=== PATIENT | male | born 1965 | race Caucasian/White ===

== ENCOUNTER 2016-11-13 17:51 | Emergency (ER) | payer BC, OTHER ==
[2016-11-13 18:15] VITALS: BMI 34.9
[2016-11-13 19:21] LABS: URINE APPEARANCE CLEAR; URINE BILIRUBIN NEGATIVE (NEGATIVE); URINE COLOR STRAW; URINE GLUCOSE (UA) NEGATIVE (NEGATIVE); URINE KETONE 1+ (NEGATIVE); URINE LEUK ESTERASE NEGATIVE (NEGATIVE); URINE NITRITE NEGATIVE (NEGATIVE); URINE PROTEIN NEGATIVE (NEGATIVE); URINE UROBILINOGEN NEGATIVE E.U./dl (0.2-1.0)
[2016-11-13 19:22] LABS: URINE BLOOD 1+ (NEGATIVE)
[2016-11-13 19:23] LABS: URINE RBC <1 /hpf (0-3); URINE WBC <1 /hpf (3-5)
[2016-11-13 19:36] LABS: BASOPHIL 0.6 % (0-2.0); MCH 27.9 pg (25.7-33.7); MCHC 33.3 g/dl (32.0-35.9); MEAN CELL VOLUME 83.9 fl (80-96); MEAN PLT VOLUME 8.5 fl (7.5-11.1); NEUTROPHILS 80.9 % (42.8-82.8); PLATELET COUNT 203 K/MM3 (134-434); RDW 14.1 % (11.9-15.9); WHITE BLOOD COUNT 9.9 K/mm3 (4.0-10.0)
[2016-11-13 19:46] LABS: ALBUMIN 3.9 g/dl (3.4-5.0); ANION GAP 12 (8-16); BILIRUBIN,TOTAL 0.6 mg/dL (0.2-1.0); CALCIUM 8.5 mg/dL (8.5-10.1); CO2 23 mmol/L (21-32); COCKROFT - GAULT 118.08; CREATININE 1.1 mg/dL (0.7-1.3); GLUCOSE,RANDOM 95 mg/dL (74-106); SGOT/AST 31 U/L (15-37); SGPT/ALT 36 U/L (12-78); TOT PROT 7.2 g/dl (6.4-8.2)
[2016-11-13 19:47] LABS: ALK PHOS 56 U/L (45-117)
[2016-11-13] MEDS ORDERED: ACETAMINOPHEN 1000 MG/100 ML VIAL (NON FORMULARY) IVPB ONE (19:49)
[2016-11-13] MEDS ORDERED: MAG HYDROX/AL HYDROX/SIMETH 30 ML UNIT-DOSE CUP PO ONE (19:49)
[2016-11-13] MEDS ORDERED: FAMOTIDINE 20 MG/50 ML IVPB 50 ML IVPB ONE ×2 (19:49→20:12)
[2016-11-13] MEDS ORDERED: ONDANSETRON 4 MG/2 ML VIAL IVPB ONE (19:49)
[2016-11-13] MEDS ORDERED: SODIUM CHLORIDE 1,000 ML IV STA (19:49)
[2016-11-13] MEDS ORDERED: ONDANSETRON 4 MG/2 ML VIAL ONE (20:12)
[2016-11-13] MEDS ORDERED: ACETAMINOPHEN INJECTION 100 ML IVPB ONE (20:12)
[2016-11-13] MEDS ORDERED: MAG HYDROX/AL HYDROX/SIMETH 30 ML UNIT-DOSE CUP ONE (20:12)
--- NOTE | 2016-11-13 21:44 | PDOC ---
History of Present Illness - General History Source: Patient Exam Limitations: No Limitations - History of Present Illness Initial Comments: 11/13/16 22:20 The patient is a 51 year old male, with no significant past medical history, who presents to the emergency department with nausea, vomiting, diarrhea and diffuse abdominal pain for the past 3 days. The patient reports multiple episodes of vomiting and diarrhea since then. Two days ago, the patient visited an urgent care for his symptoms and was prescribed Ciprofloxacin, which he states he has been taking. The patient reports that despite taking the Ciprofloxacin as directed, his symptoms have been persistent so he decided to visit the ED for further evaluation. The patient denies chest pain or shortness of breath. The patient denies fever, chills, cough or dysuria. The patient denies any sick contacts or recent travel. Allergies: None reported. Past Surgical History: None reported. Social History: Non smoker. Denies alcohol or drug use. PCP: Dr. Bland <Alyssa Zapata - Last Filed: 11/13/16 22:26> - General History Source: Patient Exam Limitations: No Limitations <Castro Flores - Last Filed: 11/13/16 22:45> - General Chief Complaint: Pain, Acute Stated Complaint: NAUSEA/DIARRHEA Time Seen by Provider: 11/13/16 19:26 Past History <Alyssa Zapata - Last Filed: 11/13/16 22:26> - Psycho/Social/Smoking Cessation Hx Suicidal Ideation: No Smoking History: Never smoked <Castro Flores - Last Filed: 11/13/16 22:45> - Past Medical History Allergies/Adverse Reactions: Allergies Allergy/AdvReac Type Severity Reaction Status Date / Time No Known Allergies Allergy Verified 11/13/16 18:12 Home Medications: Ambulatory Orders Acetaminophen [Tylenol] 650 mg PO Q4H PRN #20 tablet 11/13/16 Ciprofloxacin [Cipro -] 500 mg PO Q12H #28 tablet 11/13/16 Famotidine [Pepcid] 20 mg PO BID PRN #20 tablet 11/13/16 Mag Hydrox/Al Hydrox/Simeth [Mylanta Suspension -] 30 ml PO Q6H PRN #1 bottle Metronidazole [Flagyl -] 500 mg PO Q8H #42 tablet 11/13/16 Ondansetron HCl [Zofran] 4 mg PO Q6H PRN #15 tablet 11/13/16 Review of Systems - Review of Systems Able to Perform ROS?: Yes Comments:: 11/13/16 22:11 GENERAL/CONSTITUTIONAL: No fever or chills. No weakness. HEAD, EYES, EARS, NOSE AND THROAT: No change in vision. No ear pain or discharge. No sore throat. CARDIOVASCULAR: No chest pain or shortness of breath. RESPIRATORY: No cough, wheezing, or hemoptysis. GASTROINTESTINAL: +Nausea, vomiting, diarrhea, abdominal pain. No constipation. GENITOURINARY: No dysuria, frequency, or change in urination. MUSCULOSKELETAL: No joint or muscle swelling or pain. No neck or back pain. SKIN: No rash. NEUROLOGIC: No headache, vertigo, loss of consciousness, or change in strength/ sensation. ENDOCRINE: No increased thirst. No abnormal weight change. HEMATOLOGIC/LYMPHATIC: No anemia, easy bleeding, or history of blood clots. ALLERGIC/IMMUNOLOGIC: No hives or skin allergy. <Alyssa Zapata - Last Filed: 11/13/16 22:26> *Physical Exam - Vital Signs Last Vital Signs Temp Pulse Resp BP Pulse Ox 99.4 F 91 H 19 150/95 95 11/13/16 18:12 11/13/16 18:12 11/13/16 18:12 11/13/16 18:12 11/13/16 18:12 - Physical Exam Comments: 11/13/16 22:19 GENERAL: Awake, alert, and fully oriented, in no acute distress. HEAD: No signs of trauma. EYES: PERRLA, EOMI, sclera anicteric, conjunctiva clear. ENT: Auricles normal inspection, hearing grossly normal, nares patent, oropharynx clear without exudates. Moist mucosa. NECK: Normal ROM, supple, no lymphadenopathy, JVD, or masses. LUNGS: Breath sounds equal, clear to auscultation bilaterally. No wheezes, and no crackles. HEART: Regular rate and rhythm, normal S1 and S2, no murmurs, rubs or gallops. ABDOMEN: Diffuse abdominal tenderness to palpation. Soft, normoactive bowel sounds. No guarding, no rebound. No masses. EXTREMITIES: Normal range of motion, no edema. No clubbing or cyanosis. No cords , erythema, or tenderness. NEUROLOGICAL: Cranial nerves II through XII intact. Normal speech, normal gait. SKIN: Warm, dry, normal turgor, no rashes or lesions noted. <Alyssa Zapata - Last Filed: 11/13/16 22:26> - Vital Signs Last Vital Signs Temp Pulse Resp BP Pulse Ox 99.4 F 91 H 19 150/95 95 11/13/16 18:12 11/13/16 18:12 11/13/16 18:12 11/13/16 18:12 11/13/16 18:12 <Castro Flores - Last Filed: 11/13/16 22:45> Heart Score/ECG Review #1 ECG reviewed & interpreted by me at: 19:45 11/13/16 21:56 NSR 91, no std/monique, TWI III, avF, QTC 425 msec <Castro Flores - Last Filed: 11/13/16 22:45> ED Treatment Course - LABORATORY CBC & Chemistry Diagram: 11/13/16 18:30 11/13/16 18:30 - ADDITIONAL ORDERS Additional order review: Laboratory Results 11/13/16 11/13/16 11/13/16 19:06 18:30 18:30 Sodium 135 L Potassium 4.2 Chloride 100 Carbon Dioxide 23 Anion Gap 12 BUN 13 Creatinine 1.1 Creat Clearance w eGFR > 60 Random Glucose 95 Calcium 8.5 Total Bilirubin 0.6 AST 31 ALT 36 Alkaline Phosphatase 56 Total Protein 7.2 Albumin 3.9 Lipase 84 Urine Color Straw Urine Appearance Clear Urine pH 6.0 Ur Specific [place] 1.005 Urine Protein Negative Urine Glucose (UA) Negative Urine Ketones 1+ H Urine Blood 1+ H Urine Nitrite Negative Urine Bilirubin Negative Urine Urobilinogen Negative Ur Leukocyte Esterase Negative Urine RBC <1 Urine WBC <1 11/13/16 18:30 RBC 5.42 MCV 83.9 MCHC 33.3 RDW 14.1 MPV 8.5 Neutrophils % 80.9 Lymphocytes % 7.5 L Monocytes % 11.0 H Eosinophils % 0.0 Basophils % 0.6 - Medications Given in the ED: ED Medications Discontinued Medications Generic Name Dose Route Start Last Admin Trade Name Freq PRN Reason Stop Dose Admin Acetaminophen 1,000 mg 11/13/16 19:49 11/13/16 20:16 Ofirmev Injection - IVPB 11/13/16 19:50 1,000 mg ONCE ONE Administration Al Hydroxide/Mg Hydroxide 30 ml 11/13/16 19:49 11/13/16 20:16 Mylanta Oral Suspension - PO 11/13/16 19:50 30 ml ONCE ONE Administration Famotidine/Sodium Chloride 50 mls @ 100 mls/hr 11/13/16 19:49 11/13/16 20:16 Pepcid 20 Mg Premixed Ivpb - IVPB 11/13/16 20:18 100 mls/hr ONCE ONE Administration Sodium Chloride 1,000 mls @ 1,000 mls/hr 11/13/16 19:49 11/13/16 20:16 Normal Saline - IV 11/13/16 20:48 1,000 mls/hr ASDIR STA Administration Ondansetron HCl 4 mg 11/13/16 19:49 11/13/16 20:16 Zofran Injection IVPB 11/13/16 19:50 4 mg ONCE ONE Administration <Alyssa Zapata - Last Filed: 11/13/16 22:26> - LABORATORY CBC & Chemistry Diagram: 11/13/16 18:30 11/13/16 18:30 - ADDITIONAL ORDERS Additional order review: Laboratory Results 11/13/16 11/13/16 11/13/16 19:06 18:30 18:30 Sodium 135 L Potassium 4.2 Chloride 100 Carbon Dioxide 23 Anion Gap 12 BUN 13 Creatinine 1.1 Creat Clearance w eGFR > 60 Random Glucose 95 Calcium 8.5 Total Bilirubin 0.6 AST 31 ALT 36 Alkaline Phosphatase 56 Total Protein 7.2 Albumin 3.9 Lipase 84 Urine Color Straw Urine Appearance Clear Urine pH 6.0 Ur Specific [place] 1.005 Urine Protein Negative Urine Glucose (UA) Negative Urine Ketones 1+ H Urine Blood 1+ H Urine Nitrite Negative Urine Bilirubin Negative Urine Urobilinogen Negative Ur Leukocyte Esterase Negative Urine RBC <1 Urine WBC <1 11/13/16 18:30 RBC 5.42 MCV 83.9 MCHC 33.3 RDW 14.1 MPV 8.5 Neutrophils % 80.9 Lymphocytes % 7.5 L Monocytes % 11.0 H Eosinophils % 0.0 Basophils % 0.6 - RADIOLOGY Radiology Studies Ordered: Category Date Time Status ABDOMEN & PELVIS CT WITH CONTR [CT] Stat CT Scan 11/13/16 21:15 Taken - Medications Given in the ED: ED Medications Discontinued Medications Generic Name Dose Route Start Last Admin Trade Name Aguilaq PRN Reason Stop Dose Admin Acetaminophen 1,000 mg 11/13/16 19:49 11/13/16 20:16 Ofirmev Injection - IVPB 11/13/16 19:50 1,000 mg ONCE ONE Administration Al Hydroxide/Mg Hydroxide 30 ml 11/13/16 19:49 11/13/16 20:16 Mylanta Oral Suspension - PO 11/13/16 19:50 30 ml ONCE ONE Administration Famotidine/Sodium Chloride 50 mls @ 100 mls/hr 11/13/16 19:49 11/13/16 20:16 Pepcid 20 Mg Premixed Ivpb - IVPB 11/13/16 20:18 100 mls/hr ONCE ONE Administration Sodium Chloride 1,000 mls @ 1,000 mls/hr 11/13/16 19:49 11/13/16 20:16 Normal Saline - IV 11/13/16 20:48 1,000 mls/hr ASDIR STA Administration Ondansetron HCl 4 mg 11/13/16 19:49 11/13/16 20:16 Zofran Injection IVPB 11/13/16 19:50 4 mg ONCE ONE Administration <Castro Flores - Last Filed: 11/13/16 22:45> Medical Decision Making - Medical Decision Making 11/13/16 22:25 EXAM: CT/ABDOMEN & PELVIS CT WITH CONTR Reviewed By: Dr. Padmaja Alonso IMPRESSION: Diverticulosis coli with suggestion of mild acute diverticulitis in the proximal sigmoid colon without extravasation of air or abscess formation. Tiny bilateral nonobstructing renal stones with stranding og the perinephric fat , bilaterally, Mild fullness of the right renal pelvis and the right ureter without evidence of a ureteral stone, bilaterally. Benign-appearing prostate calcifications. Small bilateral inguinal fat-containing hernia. <Alyssa Zapata - Last Filed: 11/13/16 22:26> - Medical Decision Making 11/13/16 21:42 A portion of this note was documented by scribe services under my direction. I have reviewed the details of the note, within reason, and agree with the documentation with the following case summary and management plan written by me. Patient treated in the ED. Nursing notes are reviewed and incorporated into the medical decision-making. Vital signs reviewed. Peripheral IV access obtained by the nurse, laboratory studies are drawn and sent, reviewed and interpreted by myself. Vital Signs Temp Pulse Resp BP Pulse Ox 99.4 F 91 H 19 150/95 95 11/13/16 18:12 11/13/16 18:12 11/13/16 18:12 11/13/16 18:12 11/13/16 18:12 51-year-old male with no past medical history presents to the immersed department for diffuse abdominal pain, nausea, vomiting, diarrhea for 3 days. Patient denies sick contacts or recent travels. He knows that he's been having profuse amount of diarrhea and vomiting. 2 days ago, the patient went to an urgent care and was prescribed ciprofloxacin. He reports that despite adherent to his medications, he still feels unwell. Came to the ED for further evaluation. Differential includes colitis versus gastroenteritis versus other acute pathology. We'll obtain labs, CAT scan abdomen pelvis, treat symptoms and reassess. 11/13/16 22:28 CBC, BMP 11/13/16 18:30 11/13/16 18:30 CMP Sodium 135 mmol/L (136-145) L 11/13/16 18:30 Potassium 4.2 mmol/L (3.5-5.1) 11/13/16 18:30 Chloride 100 mmol/L (98-107) 11/13/16 18:30 Carbon Dioxide 23 mmol/L (21-32) 11/13/16 18:30 Anion Gap 12 (8-16) 11/13/16 18:30 BUN 13 mg/dL (7-18) 11/13/16 18:30 Creatinine 1.1 mg/dL (0.7-1.3) 11/13/16 18:30 Creat Clearance w eGFR > 60 (>60) 11/13/16 18:30 Random Glucose 95 mg/dL (74-106) 11/13/16 18:30 Calcium 8.5 mg/dL (8.5-10.1) 11/13/16 18:30 Total Bilirubin 0.6 mg/dL (0.2-1.0) 11/13/16 18:30 AST 31 U/L (15-37) 11/13/16 18:30 ALT 36 U/L (12-78) 11/13/16 18:30 Alkaline Phosphatase 56 U/L (45-117) 11/13/16 18:30 Total Protein 7.2 g/dl (6.4-8.2) 11/13/16 18:30 Albumin 3.9 g/dl (3.4-5.0) 11/13/16 18:30 Lipase 84 U/L (73-393) 11/13/16 18:30 Urine Test Results Urine Color Straw 11/13/16 19:06 Urine Appearance Clear 11/13/16 19:06 Urine pH 6.0 (5.0-8.0) 11/13/16 19:06 Ur Specific [place] 1.005 (1.001-1.035) 11/13/16 19:06 Urine Protein Negative (NEGATIVE) 11/13/16 19:06 Urine Glucose (UA) Negative (NEGATIVE) 11/13/16 19:06 Urine Ketones 1+ (NEGATIVE) H 11/13/16 19:06 Urine Blood 1+ (NEGATIVE) H 11/13/16 19:06 Urine Nitrite Negative (NEGATIVE) 11/13/16 19:06 Urine Bilirubin Negative (NEGATIVE) 11/13/16 19:06 Ur Leukocyte Esterase Negative (NEGATIVE) 11/13/16 19:06 Urine RBC <1 /hpf (0-3) 11/13/16 19:06 Urine WBC <1 /hpf (3-5) 11/13/16 19:06 CT scan of the abdomen and pelvis. Demonstrates mild diverticulitis with no perforation or abscess. 11/13/16 22:36 The patient was reassessed and the patient reports feeling significantly well. He feels more comfortable. I had given patient instructions and the results. He has mild acute diverticulitis. I warned him about foods with small seeds and counseled him on high fiber diet. I will give him a prescription for 2 weeks of ciprofloxacin and Flagyl. And we'll give her referral to a gastroentologist. Return precautions given. I discussed the physical exam findings, ancillary test results and final diagnoses with the patient. I answered all of the patient's questions. The patient was satisfied with the care received and felt comfortable with the discharge plan and treatment plan. The patient will call their primary care physician within 24 hours to arrange follow-up and will return to the Emergency Department with any new, persistant or worsening symptoms. <Castro Flores - Last Filed: 11/13/16 22:45> *DC/Admit/Observation/Transfer - Attestations Scribe Attestion: 11/13/16 22:10 Documentation prepared by Alyssa Zapata, acting as medical device engineer for Castro Flores MD. <Alyssa Zapata - Last Filed: 11/13/16 22:26> - Discharge Dispostion Admit: No <Castro Flores - Last Filed: 11/13/16 22:45> Diagnosis at time of Disposition: Acute diverticulitis - Discharge Dispostion Disposition: HOME Condition at time of disposition: Improved - Prescriptions Prescriptions: Ciprofloxacin [Cipro -] 500 mg PO Q12H #28 tablet Metronidazole [Flagyl -] 500 mg PO Q8H #42 tablet Mag Hydrox/Al Hydrox/Simeth [Mylanta Suspension -] 30 ml PO Q6H PRN #1 bottle PRN Reason: Abdominal Pain Famotidine [Pepcid] 20 mg PO BID PRN #20 tablet PRN Reason: Abdominal Pain Acetaminophen [Tylenol] 650 mg PO Q4H PRN #20 tablet PRN Reason: Pain Ondansetron HCl [Zofran] 4 mg PO Q6H PRN #15 tablet PRN Reason: Nausea - Referrals Referrals: Kristie Bland MD [Primary Care Provider] - Dany Velez MD [Staff Physician] - - Patient Instructions Printed Discharge Instructions: DI for Diverticulitis Additional Instructions: You have acute diverticulitis. Please take the 2 antibiotics, ciprofloxacin and Flagyl as prescribed for the next 2 weeks. Please complete the antibiotic. He may take the other medications , Zofran, Tylenol, Maalox, Pepcid as prescribed for symptom control. He will take several days before your symptoms improved. Please follow-up with your casting tester. Call to schedule appointment.
[2016-11-13] MEDS ORDERED: metroNIDAZOLE 250 MG TABLET PO ONE (22:26)
[2016-11-13] MEDS ORDERED: CIPROFLOXACIN 250 MG TABLET (RESTRICTED TO ID) PO ONE (22:26)
[2016-11-13] MEDS ORDERED: LEVOFLOXACIN 500 MG TABLET (FP) PO ONE (22:34)
[2016-11-13] MEDS ORDERED: LEVOFLOXACIN 500 MG TABLET (FP) ONE (22:34)
[2016-11-13] MEDS ORDERED: metroNIDAZOLE 250 MG TABLET ONE (22:34)
[2016-11-13 22:59] VITALS: BP 146/84; PULSE 86; TEMP 98.9
--- NOTE | 2016-11-14 16:20 | EKG ---
Test Reason : Blood Pressure : / mmHG Vent. Rate : 091 BPM Atrial Rate : 091 BPM P-R Int : 148 ms QRS Dur : 086 ms QT Int : 346 ms P-R-T Axes : 017 063 027 degrees QTc Int : 425 ms NORMAL SINUS RHYTHM NONSPECIFIC T WAVE ABNORMALITY ABNORMAL ECG NO PREVIOUS ECGS AVAILABLE Confirmed by CHASE AVITIA MD ([id number]) on 11/14/2016 4:20:09 PM Referred By: Confirmed By:CHASE AVITIA MD
== END 2016-11-13 23:00 | disposition home or self-care (01) ==
LOC: JER 17:51
PROC: 3E033GC Introduction of Other Therapeutic Substance into Peripheral Vein, Percutaneous Approach (ICD-10-PCS; principal; 2016-11-13)
PROC: 3E033NZ Introduction of Analgesics, Hypnotics, Sedatives into Peripheral Vein, Percutaneous Approach (ICD-10-PCS; 2016-11-13)
PROC: 3E033GC Introduction of Other Therapeutic Substance into Peripheral Vein, Percutaneous Approach (ICD-10-PCS; 2016-11-13)
DX: K57.92 Diverticulitis of intestine, part unspecified, without perforation or abscess without bleeding (principal)
CPT/HCPCS: 36415; 74177-TC; 80053; 81003; 81015; 83690; 85025; 93005; 93010; 99283-25

== ENCOUNTER 2017-10-27 22:49 | Emergency (ER) | payer BC, OTHER ==
[2017-10-27 23:05] VITALS: BP 156/90; PULSE 68; TEMP 97.9; BMI 34.0
[2017-10-27] MEDS ORDERED: METHOCARBAMOL 500 MG TABLET PO ONE (23:12)
[2017-10-27] MEDS ORDERED: IBUPROFEN 400 MG TABLET (FP) PO ONE ×2 (23:12→23:18)
--- NOTE | 2017-10-27 23:12 | PDOC ---
History of Present Illness - General History Source: Patient <Rory Rendon - Last Filed: 10/27/17 23:13> - General Exam Limitations: No Limitations - History of Present Illness Initial Comments: 10/27/17 23:27 The patient is a 52 year old male, with no significant past medical history, who presents to the emergency department with, right elbow pain. The patient reports that just prior to arrival he was using a snowblower in his yard when the supervisor sawmill hit an object which forced his right arm to shoot back and he felt a pop at the base of his tricep. The patient reports pain and decreased range of motion in the right upper extremity. The patient reports he is right hand dominant. He denies any recent fevers, chills, headache or dizziness. He denies any recent nausea, vomit, diarrhea or constipation. He denies any recent chest pain or shortness of breath. Allergies: NKA <Kael Petersen - Last Filed: 10/27/17 23:32> - General Chief Complaint: Pain, Acute Stated Complaint: INJURY TO ELBOW Time Seen by Provider: 10/27/17 23:07 Past History - Past Medical History COPD: No - Suicide/Smoking/Psychosocial Hx Smoking History: Never smoked <Rory Rendon - Last Filed: 10/27/17 23:13> <Kael Petersen - Last Filed: 10/27/17 23:32> - Past Medical History Allergies/Adverse Reactions: Allergies Allergy/AdvReac Type Severity Reaction Status Date / Time No Known Allergies Allergy Verified 10/27/17 22:55 Home Medications: Ambulatory Orders Ibuprofen 800 mg PO TID #30 tablet 10/27/17 Methocarbamol [Robaxin -] 1,000 mg PO TID #60 tablet 10/27/17 Review of Systems - Review of Systems Comments:: 10/27/17 23:30 CONSTITUTIONAL: Absent: fever, no chills, no fatigue EYES: Absent: visual changes ENT: Absent: ear pain, no sore throat CARDIOVASCULAR: Absent: chest pain, no palpitations RESPIRATORY: Absent: cough, no SOB GI: Absent: abdominal pain, no nausea, no vomiting, no constipation, no diarrhea GENITOURINARY: Absent: dysuria, no frequency, no hematuria MUSKULOSKELETAL: Present: (+) Right elbow pain. Absent: back pain, SKIN: Absent: rash NEURO: Absent: headache <Kael Petersen - Last Filed: 10/27/17 23:32> *Physical Exam - Vital Signs Last Vital Signs Temp Pulse Resp BP Pulse Ox 97.9 F 68 18 156/90 98 10/27/17 22:55 10/27/17 22:55 10/27/17 22:55 10/27/17 22:55 10/27/17 22:55 <Rory Rendon - Last Filed: 10/27/17 23:13> - Vital Signs Last Vital Signs Temp Pulse Resp BP Pulse Ox 97.9 F 68 18 156/90 98 10/27/17 22:55 10/27/17 22:55 10/27/17 22:55 10/27/17 22:55 10/27/17 22:55 - Physical Exam Comments: 10/27/17 23:31 GENERAL: Well-appearing, well-nourished. No apparent distress. HEENT: Normocephalic, atraumatic. PERRL, EOM intact. CARDIOVASCULAR: Normal S1, S2. Regular rate and rhythm. PULMONARY: Clear to auscultation bilaterally. ABDOMEN: Soft, non-distended, non-tender. EXTREMITIES: (+) Deformity at the right elbow. (+) Swelling and tenderness to the end of the tricep at the insertion of the tendon to the right elbow. (+) Unable to completely extend the right arm secondary to pain and weakness. SKIN: Warm, dry. No rash NEUROLOGICAL: No focal neurological deficits. <Kael Petersen - Last Filed: 10/27/17 23:32> ED Treatment Course - Medications Given in the ED: ED Medications Discontinued Medications Generic Name Dose Route Start Last Admin Trade Name Freq PRN Reason Stop Dose Admin Ibuprofen 800 mg 10/27/17 23:12 10/27/17 23:21 Motrin - PO 10/27/17 23:13 800 mg ONCE ONE Administration Methocarbamol 1,000 mg 10/27/17 23:12 10/27/17 23:21 Robaxin - PO 10/27/17 23:13 1,000 mg ONCE ONE Administration <Kael Petersen - Last Filed: 10/27/17 23:32> Medical Decision Making - Medical Decision Making 10/27/17 23:17 Dr. Rendon: The scribe's documentation has been prepared under my direction and personally reviewed by me in its entirery. I confirm that the note above accurately reflects all work, treatment, procedures, and medical decision making performed by me. <Rory Rendon - Last Filed: 10/27/17 23:13> *DC/Admit/Observation/Transfer - Discharge Dispostion Admit: No <Rory Rendon - Last Filed: 10/27/17 23:13> - Attestations Scribe Attestion: 10/27/17 23:32 Documentation prepared by Kael Petersen, acting as medical transcription editor for Rory Rendon DO. <Kael Petersen - Last Filed: 10/27/17 23:32> Diagnosis at time of Disposition: Elbow pain, right Ruptured triceps tendon Qualifiers: Encounter type: initial encounter Laterality: right Qualified Code(s): S46.311A - Strain of muscle, fascia and tendon of triceps, right arm, initial encounter - Discharge Dispostion Disposition: HOME Condition at time of disposition: Stable - Prescriptions Prescriptions: Ibuprofen 800 mg PO TID #30 tablet Methocarbamol [Robaxin -] 1,000 mg PO TID #60 tablet - Referrals Referrals: Geronimo Diaz MD [Staff Physician] - Mich Resendez MD [Staff Physician] - - Patient Instructions Printed Discharge Instructions: DI for Elbow Pain
[2017-10-27] MEDS ORDERED: METHOCARBAMOL 500 MG TABLET ONE (23:18)
== END 2017-10-27 23:35 | disposition home or self-care (01) ==
LOC: JER 22:49
DX: S46.311A Strain of muscle, fascia and tendon of triceps, right arm, initial encounter (principal); X58.XXXA Exposure to other specified factors, initial encounter; Y93.89 Activity, other specified; Y92.9 Unspecified place or not applicable
CPT/HCPCS: 99281-25

== ENCOUNTER 2018-03-03 13:19 | Emergency (ER) | payer BC, OTHER ==
[2018-03-03 13:43] VITALS: BP 133/80; PULSE 76; TEMP 98.7; BMI 34.0
--- NOTE | 2018-03-03 14:06 | PDOC ---
History of Present Illness - General Chief Complaint: Pain, Acute Stated Complaint: PAIN/ LT LEG PAIN Time Seen by Provider: 03/03/18 13:46 History Source: Patient Exam Limitations: No Limitations - History of Present Illness Initial Comments: CHIEF COMPLAINT: 52 y/o afebrile male with no significant PMH c/o left sided pelvis and thigh pain x 3 days. HISTORY OF PRESENT ILLNESS: The patient states his left low back was hurting for a few days, that cleared and then this pain started. He states it feels like burning and his quad feels weak at times. He denies fall, trauma to back, saddle anesthesia, numbness/tingling to LEs, bowel/bladder incontinence, testicular swelling/erythema/pain, painful urination. Vital signs on arrival are within normal limits. REVIEW OF SYSTEMS: GENERAL/CONSTITUTIONAL: No fever/chills. No weakness. No weight change.. GENITOURINARY: No dysuria, frequency, or change in urination. MUSCULOSKELETAL: +left pelvic pain and left quad pain. No neck or back pain. SKIN: No rash or easy bruising. NEUROLOGIC: No headache, vertigo, loss of consciousness, or loss of sensation. PHYSICAL EXAM: VITAL_SIGNS: within normal limits GENERAL_APPEARANCE: alert, cooperative, no obvious discomfort. Normal gait. MENTAL_STATUS: speech clear, oriented X 3, responds appropriately to questions. NEURO: motor intact and sensory intact in injured extremity. No saddle anesthesia. Equal leg raise b/l. Equal quad strength b/l. PELVIS/BACK: No midline lumbar spine TTP or step offs. TTP of left lumbar paravertebral muscles. TTP of left pelvis without hernia appreciated. EXTREMITIES: Full ROM of left leg and hip. NO erythema, warmth, swelling or streaking to left leg. No TTP of left leg. SKIN: warm, dry, good color. Past History - Past Medical History Allergies/Adverse Reactions: Allergies Allergy/AdvReac Type Severity Reaction Status Date / Time No Known Allergies Allergy Verified 03/03/18 13:40 COPD: No DVT: No - Suicide/Smoking/Psychosocial Hx Smoking History: Never smoked Hx Alcohol Use: No Drug/Substance Use Hx: No *Physical Exam - Vital Signs Last Vital Signs Temp Pulse Resp BP Pulse Ox 98.7 F 76 133/80 96 03/03/18 13:40 03/03/18 13:40 03/03/18 13:40 03/03/18 13:40 Medical Decision Making - Medical Decision Making A/P: 52 y/o male with left sided sciatica radiating into pelvis and left quad. Offered Toradol but patient refused. HE states he will take aleve at home. Suggested he ice and massage affected area, take Aleve for pain with food and f/ u with his PCP and Dr. Conway next week if no improvement in symptoms. The patient verbalizes understanding of all instructions, has no further questions and is awaiting discharge. *DC/Admit/Observation/Transfer Diagnosis at time of Disposition: Sciatic nerve pain Qualifiers: Laterality: left Qualified Code(s): M54.32 - Sciatica, left side - Discharge Dispostion Disposition: HOME Condition at time of disposition: Good - Referrals Referrals: Beto Conway MD [Staff Physician] - 1 week - Patient Instructions Printed Discharge Instructions: DI for Sciatica Additional Instructions: Discharge Instructions: -Apply ice and massage to affected area -Take Aleve with food for the next few days to help with pain -Stretch your low back 3 times per day -Follow up with your PCP and Dr. Conway next week if no improvement in symptoms -Avoid heavy lifting and twisting until symptoms improve -Return to the ER with any worsening or concerning symptoms. - Post Discharge Activity
== END 2018-03-03 14:18 | disposition home or self-care (01) ==
LOC: JERFT 13:19
DX: M54.32 Sciatica, left side (principal)
CPT/HCPCS: 99281-25

== ENCOUNTER 2018-04-09 12:43 | Emergency (ER) | payer BC, OTHER ==
[2018-04-09 12:48] VITALS: BP 142/81; PULSE 83; TEMP 98; BMI 34.0
--- NOTE | 2018-04-09 13:35 | PDOC ---
History of Present Illness - General Chief Complaint: Pain Stated Complaint: INJURY Time Seen by Provider: 04/09/18 13:14 History Source: Patient Exam Limitations: No Limitations - History of Present Illness Initial Comments: 04/09/18 patient came to emergency department for evaluation of left knee pain. 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 Retired approximately 10 years ago but states his had worsening issues with his joints. Left knee has been swollen and painful for a few weeks and denies any knowledge of changes in exercise, trauma, or other known injury. Occurred: reports: last week Severity: reports: moderate Pain Location: reports: lower extremity (left knee ) Associated Symptoms (Fall): denies symptoms Past History - Travel Traveled outside of the country in the last 30 days: No Close contact w/someone who was outside of country & ill: No - Past Medical History Allergies/Adverse Reactions: Allergies Allergy/AdvReac Type Severity Reaction Status Date / Time No Known Allergies Allergy Verified 04/09/18 12:48 Home Medications: Ambulatory Orders NK [No Known Home Medication] 03/03/18 COPD: No DVT: No - Suicide/Smoking/Psychosocial Hx Smoking History: Never smoked Hx Alcohol Use: No Drug/Substance Use Hx: No Review of Systems - Review of Systems Able to Perform ROS?: Yes Is the patient limited Icelandic proficient: Yes Constitutional: Yes: See HPI. No: Symptoms Reported, Fever, Malaise HEENTM: No: Symptoms Reported Musculoskeletal: Yes: Symptoms Reported, See HPI, Joint Pain, Joint Swelling, Muscle Weakness Integumentary: Yes: See HPI. No: Symptoms Reported, Bruising All Other Systems: Reviewed and Negative *Physical Exam - Vital Signs Last Vital Signs Temp Pulse Resp BP Pulse Ox 98 F 83 18 142/81 99 04/09/18 12:46 04/09/18 12:46 04/09/18 12:46 04/09/18 12:46 04/09/18 12:46 - Physical Exam General Appearance: Yes: Nourished, Appropriately Dressed, Mild Distress HEENT: positive: LEYLA, Normal ENT Inspection, TMs Normal, Pharynx Normal Neck: positive: Supple. negative: Tender, Lymphadenopathy (R), Lymphadenopathy (L) Respiratory/Chest: positive: Lungs Clear Extremity: positive: Normal Capillary Refill, Normal Range of Motion, Tender ( mild tenderness to superior aspect of the knee joint. Has full range of motion with no ballottement. Patella is mobile, has no reproducible tenderness along the medial or lateral aspect of knee, no crepitus or step-offs. Neurovascular intact distal to area.). negative: Normal Inspection, Swelling Integumentary: positive: Normal Color, Dry, Warm Neurologic: positive: marketing liaison II-XII NML intact, Fully Oriented, Alert, Normal Mood/ Affect, Normal Response, Motor Strength 5/5 Progress Note - Progress Note Progress Note: Left knee strain, possible meniscus issue versus chronic arthritis. Patient agrees to hold for x-rays and follow-up with orthopedist for further evaluation , therapy, and potential testing and treatment *DC/Admit/Observation/Transfer Diagnosis at time of Disposition: Strain of left knee Qualifiers: Encounter type: initial encounter Qualified Code(s): S86.912A - Strain of unspecified muscle(s) and tendon(s) at lower leg level, left leg, initial encounter - Discharge Dispostion Disposition: HOME Condition at time of disposition: Stable Decision to Admit order: No - Referrals Referrals: Kristie Bland MD [Primary Care Provider] - - Patient Instructions Printed Discharge Instructions: DI for Knee Sprain Additional Instructions: Rest, ice to area on and off for 15 minutes 4-6 times a day Avoid heavy lifting or exercise until pain and swelling is resolved or until further directed Keep area highly elevated to reduce swelling Use splints/Gabo wrap as directed Followup with orthopedist in one to 2 days if not improving, if significantly improved may wait one week for followup with orthopedist May use Aleve 2 tablets every 12 hours as needed for pain - Post Discharge Activity Forms/Work/School Notes: Back to Work
== END 2018-04-09 13:48 | disposition home or self-care (01) ==
LOC: JERFT 12:43
DX: S86.812A Strain of other muscle(s) and tendon(s) at lower leg level, left leg, initial encounter (principal); X58.XXXA Exposure to other specified factors, initial encounter; Y93.89 Activity, other specified; Y92.89 Other specified places as the place of occurrence of the external cause; Y99.8 Other external cause status
CPT/HCPCS: 99281-25